=== PATIENT | male | born 1965 | race Caucasian/White ===

== ENCOUNTER 2023-10-05 08:14 | Day surgery (SDC) | payer OTHER, SELFPAY ==
[2023-10-05 08:41] VITALS: BP 141/86; PULSE 67; RESP 16; TEMP 36.5; O2SAT 95; BMI 32.5
[2023-10-05] MEDS: Lactated Ringers 1,000 ML 15 ML IV (08:53)
--- NOTE | 2023-10-05 10:00 | AMP_PTH ---
PATHOLOGY RESULTS PATIENT: INDIRA ESPINOZA LOC: [facility] [place] U#:[id number] AGE/SX: 58/M ROOM: RE10/05/[address]: Dr. Pedro Ott DPM : 1965 BED: DIS: 10/05/2023 SPEC #: [id number] RECD: 10/05/23 12:35 STATUS: CHERYL HALIMA #: [id number] STEPHON: 10/05/23 10:[address]: Pedro Ott DEPT: SURGICAL PATHOLOGY RECD BY: Lou Cantu ENTERED: 10/05/23 12:36 SP TYPE: Amputation OTHR DR: Dr. Wellington Dalal MD Tissues: Toe, NOS Toe, NOS Procedures: Surgery Specimen Level III HEADER OPERATION: Removal of right foot second and third intermetatarsal neuroma PRE-OP DIAGNOSIS: Neuroma second and third toe right foot TISSUE SUBMITTED: A - Neuroma second toe right foot, B - Neuroma third toe right foot MICROSCOPIC DIAGNOSIS A. Neuroma second toe right foot, excision: Mast's neuroma. B. Neuroma third toe right foot, excision: Mast's neuroma. RUBI:bigrit 10/08/2023 MICROSCOPIC DESCRIPTION Slides are reviewed. GROSS DESCRIPTION A - Received in fixative is one container labeled with the patient's name and designated neuroma second toe right foot. The specimen consists of multiple pieces of franco-pink soft tissue that in aggregate measure 2.0 x 1.2 x 0.2 cm. The specimen is totally submitted in one cassette. B - Received in fixative is one container labeled with the patient's name and designated neuroma third toe right foot. The specimen consists of multiple pieces of franco-yellow soft tissue that in aggregate measure 4.0 x 3.0 x 0.3 cm. The specimen is totally submitted in two cassettes. / RUBI:birgit 10/05/2023 TC:5 CPT: 02180 x2
[2023-10-05] MEDS: Clindamycin 900 MG/50 ML BAG 75 MG IV (10:13)
--- NOTE | 2023-10-05 10:17 | DCINST_ITS ---
Discharge Instructions Diet Discharge Diet: Light diet - advance as tolerated Activity Discharge Activity: May Not Drive Weight Bearing Status: No weight bearing (No weightbearing right foot) Keep extremity elevated above heart level: Right Leg (Keep right foot elevated with pillows for at least 50 minutes of every hour) Dressing / Incision Call your doctor if your incision/area has: Continuous Slow Oozing, Increased Pain/ Swelling and Foul Smelling Discharge Call your doctor if you observe: Fever of 101 or Higher, Shortness of breath, Chest pain, Calf discomfort and Uncontrolled pain Change Dressing in: do not change dressing Remove Dressing in: do not remove dressing Cleanse incision/area with: Keep Dressing Clean & Dry Follow Up Care Please Follow Up With: Pedro Ott DPM When: next week in office, sooner if needed Test Results: Test results from this visit will be discussed in further detail at your follow- up appointment, if applicable. Discharge Plan Admission Attending Provider: Pedro Ott Primary Care Provider: Wellington Dalal Discharge Orders/Prescriptions Prescriptions: New hydrocodone-acetaminophen 5-325 mg tablet 1 - 2 tab PO Q6H PRN (Reason: pain) 4 Days Qty: 28 0RF No Action lisinopril-hydrochlorothiazide 20-12.5 mg tablet 1 tab PO DAILY Patient Comments: TAKE 1 TABLET BY MOUTH ONCE DAILY Referrals / Follow Up: Wellington Dalal MD [Primary Care Provider] - Disposition Disposition (needs filled in before D/C Order can be placed): Home, Self Care
--- NOTE | 2023-10-05 10:18 | OP.PCM_ITS ---
Report of Operation Date of Procedure: 10/05/23 Pre-Operative Diagnosis: 2nd and 3rd intermetatarsal neuromas right foot Surgery/Procedure Performed:: Removal of 2nd and 3rd intermetatarsal neuromas, right foot Surgeon: Pedro Ott showroom consultant: Rossy Type of Anesthesia: Local and MAC Specimen's removed: 1. 2nd intermetatarsal neuroma right foot - sent to pathology 2. 3rd intermetatarsal neuroma right foot - sent to pathology Estimated Blood Loss (mL): 5mL Description of Procedure: Indications: This is a 58 year old gentleman with history of chronic right foot pain at level of the 2nd and 3rd intermetatarsal/digital spaces. He has undergone conservative / nonsurgical care (including but not limited to injection therapy, foot orthotics, rest, activity modifications, EPAT/shockwave, laser, changes in shoegear, anti-inflammatories) but continues to have significant limiting pain. He elected to proceed with surgical intervention of excision of the 2nd and 3rd intermetatarsal space neuromas (advised patient she would have numbness to the plantar foot). This was discussed with him in great detail. He agreed with this plan, reviewed all of the possible benefits vs risks, goal, expectations, and typical healing time. He was able to repeat these back, all of his questions were answered. The consent forms were reviewed with him and he agreed signed them. No guarantees were given nor implied. Operative procedure: The patient was brought back to the operating room and was placed on the operating room table in the supine position. Patient was carefully secured the the operating room table with a safely belt around his waist. A time out was performed and the patient was properly identified and the surgical plan was confirmed. The patient received 900mg of IV Clindamycin for antibiotic prophylaxis. A well padded pneumatic tourniquet was applied around the right ankle. The patient did receive general anesthesia per the anesthesiologist. A total of 30mL of 0.5% Bupivacaine plain was given as a local block to the 2nd and 3rd intermetatarsal spaces on the right foot. The right foot was scrubbed, prepped, draped in the usual aseptic fashion. The right foot was exsanguinated via elevation and the ankle pneumatic tourniquet was inflated to 250mmHg. Attention was directed to the 3rd intermetatarsal space, where a longitudinal incision was made using a 15 blade on the dorsal aspect. Careful dissection was completed down to the deep transverse metatarsal ligament which was released in sharp fashion. A plantar neuroma was identified localized to the site, which was yellow, degenerative and had significant fatty tissue around it. 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 This was carefully dissected out, removing the proximal nerve and also the distal branches to the 3rd and 4th toes at the base of the toes. This was passed from the surgical site and was sent to pathology for further evaluation. The proximal nerve stump was healthy, viable and was carefully buried into the intrinsic musculature of the foot. All other tissue to the site appeared healthy and viable with no other abnormality present to this site. The site was flushed out with copious amounts of normal saline solution. The subcutaneous tissue was reapproximated using 3-0 Vicryl. The skin was reapproximated using 3-0 Nylon. Attention was directed to the 2nd intermetatarsal space, where a longitudinal incision was made using a 15 blade on the dorsal aspect. Careful dissection was completed down to the deep transverse metatarsal ligament which was released in sharp fashion. A large plantar neuroma was identified localized to the site, which was yellow and degenerative. 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 This was carefully dissected out, removing the proximal nerve and also the distal branches to the 2nd and 3rd toes at the base of the toes. This was passed from the surgical site and was sent to pathology for further evaluation. The proximal nerve stump was healthy, viable and was carefully buried into the intrinsic musculature of the foot. All other tissue to the site appeared healthy and viable with no other abnormality present to this site. The site was flushed out with copious amounts of normal saline solution. The subcutaneous tissue was reapproximated using 3-0 Vicryl. The skin was reapproximated using 3-0 Nylon. All vital structures including all vital musculoskeletal and neurovascular structures were properly identified and protected/retracted as necessary. The pneumatic tourniquet was deflated (total tourniquet time was 60 minutes), and there was immediate return vascular flow to the foot, CFT < 2 seconds to all toes, normal temperature gradient, pedal pulses intact. Hemostasis was achieved. A dressing was applied which consisted of Betadine soaked adaptic, 4x4 gauze, kerlix, and rufina bandage. The patient tolerated the above operative procedure well at the anesthesia well with no complication. The patient was transported to the recovery room with vital signs stable and in good condition. Post operative orders were placed. P ost operative instructions were reviewed with him as well as with his who was here with him today. No weightbearing to the right foot, keep foot elevated for at least 50 minutes of every hour, keep dressing clean, dry and intact. Prescription for [place] 5mg/325mg was prescribed: 1-2 tabs PO q 6 hours PRN pain, and also Eliquis 2.5mg PO q 12 hours to help prevent a blot clot. He is to follow up with me within 1 week or sooner if needed. Grafts/Implants Used: None Complications None
[2023-10-05] MEDS: Bupivacaine Mpf 0.5% 30 ML VIAL (11:15)
[2023-10-05 11:40] VITALS: BP 120/89; BP 141/86; PULSE 69; RESP 16; TEMP 36.9; O2SAT 94
[2023-10-05 11:45] VITALS: BP 135/94; BP 141/86; PULSE 68; RESP 16; O2SAT 94
[2023-10-05 11:50] VITALS: BP 124/83; BP 141/86; PULSE 60; RESP 16; O2SAT 97
[2023-10-05 11:57] VITALS: BP 138/98; BP 141/86; PULSE 63; RESP 16; TEMP 36.9; O2SAT 97
[2023-10-05 12:10] VITALS: BP 141/86
== END 2023-10-05 12:24 | disposition home or self-care (01) ==
LOC: SDC 08:18 → AC 08:20
PROVIDERS: PCP Family Medicine; Referring Provider Family Medicine; Visit Provider Podiatrist
PROC: (CPT 28080; principal; 2023-10-05 09:45)
DX: G57.81 Other specified mononeuropathies of right lower limb (principal); I10 Essential (primary) hypertension; G47.33 Obstructive sleep apnea (adult) (pediatric); Z86.718 Personal history of other venous thrombosis and embolism; Z79.899 Other long term (current) drug therapy
CPT/HCPCS: 28080 ×2; 01470; 88304; 88305; 88311; J7120; J2405

== ENCOUNTER → 2023-10-11 | Outpatient (CLI) | payer OTHER, SELFPAY ==
[2023-10-11 15:33] LABS: Absolute Lymphocyte Count 1.52 X10^3/uL (0.83-4.51); Basophil# 0.03 X10^3/uL; Basophil% 0.3 % (0-1); Eosinophil# 0.06 X10^3/uL; Eosinophils% 0.6 % (0-5); Hematocrit 46.5 % (40-54); Hemoglobin 14.5 g/dL (13.0-16.5); Lymphocyte # 1.52 X10^3/ul (0.83-4.51); Lymphocyte % 14.2 % (19-41); Mean Corp Hgb Conc 31.2 g/dL (32-36); Mean Corpuscular Hgb 27.9 pg (27.0-32.0); Mean Corpuscular Volume 89.6 fL (80-94); Mean Platelet Vol. 9.3 fl (6.2-12.0); Monocyte# 0.99 X10^3/uL; Monocyte% 9.3 % (0-10); NRBC Flagged by Analyzer 0 % (0-5); Neutrophil # 8.01 X10^3/uL (2.7-7.7); Platelet Count 324 K/mm3 (150-450); RBC Distribution Width CV 12.4 % (11.6-14.6); RBC Distribution Width SD 41.1 fl (35.1-43.9); Red Blood Count 5.19 M/mm3 (4.6-6.2); White Blood Count 10.7 K/mm3 (4.4-11.0)
[2023-10-11 16:09] LABS: ALB/GLOB Ratio 0.8 RATIO (0.9-2.4); AST(SGOT) 27 U/L (15-37); Alanine Aminotransfer ALT/SGPT 43 U/L (16-61); Albumin, Serum 3.7 g/dL (3.2-5.0); Alkaline Phosphatase 57 U/L (45-117); Anion Gap 6 (5-15); BUN 21 mg/dL (7-18); BUN/Creat Ratio 16.4 RATIO (10-20); Calcium,Total 9.5 mg/dL (8.5-10.1); Chloride 107 mmol/L (98-107); Creatinine, Serum 1.28 mg/dL (0.70-1.30); EST Glomerular Filtration Rate 62 mL/min (>60); Est Glom Filt Rate - Afr Amer 75 mL/min (>60); Globulin 4.4 g/dL (2.2-4.2); Glucose 102 mg/dL (74-106); Potassium 3.9 mmol/L (3.5-5.1); Protein, Total 8.1 g/dL (6.4-8.2); Sodium Level 141 mmol/L (136-145); Uric Acid 7.3 mg/dL (3.5-7.2)
== END | disposition home or self-care (01) ==
LOC: MTLAB 12:41
PROVIDERS: PCP Family Medicine; Referring Provider Podiatrist; Visit Provider Podiatrist
DX: M10.9 Gout, unspecified (principal)
CPT/HCPCS: 36415; 80053; 84550; 85025

== ENCOUNTER → 2024-01-31 | Outpatient (CLI) | payer OTHER, SELFPAY ==
--- NOTE | 2024-01-31 07:49 | MRI_ITS ---
STUDY: MRI LEFT ANKLE WITHOUT CONTRAST REASON FOR EXAM: Male, 58 years old. Left Achilles tendinitis with spur and gout. Left heel pain. History of prior surgery 3 years ago. TECHNIQUE: Standardized fat and water weighted pulse sequences were obtained in all 3 orthogonal planes. COMPARISON: None. FINDINGS: Normal subcutis adipose space. There is minimal posterior tibialis tenosynovitis. Intact posterior tibialis tendon. Normal flexor digitorum longus tendon. Normal flexor hallucis longus tendon. There is minimal peroneal tenosynovitis. Intact peroneus longus and brevis tendons. Normal tibialis anterior tendon. Normal extensor hallucis longus tendon. Normal extensor digitorum longus tendons. There are anchors in the posterior calcaneus from distal Achilles tendon repair surgery. There is postoperative tendinosis of the distal Achilles tendon insertion, but no focal Achilles tendon tear. There is mild reactive marrow edema in the posterior calcaneus. Normal plantar fascia. Normal plantar calcaneal tubercles. Normal intrinsic muscles of the rearfoot. Normal distal tibiofibular syndesmotic ligamentous complex. Normal lateral ligamentous complex. Normal subtalar ligaments and sinus tarsi. Normal deltoid ligamentous complexes. Normal plantar calcaneonavicular (spring) ligament. There are small tibiotalar and posterior subtalar joint effusions. Normal talar dome. Normal talonavicular articulation. Normal calcaneocuboid articulation. Normal navicular-cuneiform articulations. MRI/Lower Ext Joint Only (Routine) IMPRESSION: Postoperative tendinosis of the distal Achilles tendon insertion, but no focal Achilles tendon tear. Mild reactive marrow edema in the posterior calcaneus. Minimal tenosynovitis of the posterior tibialis and peroneal tendons. Small tibiotalar and posterior subtalar joint effusions. Electronically Signed: Luis Bolanos MD at 9:27 EDT ,
== END | disposition home or self-care (01) ==
LOC: MRI 07:44
PROVIDERS: PCP Family Medicine; Referring Provider Podiatrist; Visit Provider Podiatrist
DX: M76.62 Achilles tendinitis, left leg (principal); M77.32 Calcaneal spur, left foot; M10.472 Other secondary gout, left ankle and foot
CPT/HCPCS: 73721